=== PATIENT | female | born 1960 | race Caucasian/White ===

== ENCOUNTER 2018-04-28 16:13 | Emergency (ER) | payer SELFPAY ==
--- NOTE | 2018-04-28 17:32 | ER Document Report ---
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 Patient states she has had it for the last few weeks. She also complains of left foot pain. She does states she has been walking a lot. She states she was here in March and evaluated and was found to have a UTI. She states she never took the antibiotic. She also reports that she was diagnosed with kidney stones at that time. Currently, she denies any nausea or vomiting. She does not have any abdominal pain. And her symptoms appear radicular in nature. She denies any history of bleeding when asked about the hemophilia and says she is a "carrier" . She has not followed by a physician at this time. TRAVEL OUTSIDE OF THE [place] IN LAST 30 DAYS: No - Related Data Allergies/Adverse Reactions: Sulfa (Sulfonamide Antibiotics) Allergy (Verified 04/28/18 16:14) Past Medical History - Social History Chew tobacco use (# tins/day): No Frequency of alcohol use: None Drug Abuse: None Renal/ Medical History: Reports: Hx Kidney Stones. Denies: Hx Peritoneal Dialysis Physical Exam - Vital signs Vitals: Temp Pulse Resp BP Pulse Ox 97.4 F 91 20 166/115 H 98 04/28/18 16:28 04/28/18 16:28 04/28/18 16:28 04/28/18 16:28 04/28/18 16:28 Course - Vital Signs Vital signs: Temp Pulse Resp BP Pulse Ox 97.4 F 91 20 166/115 H 98 04/28/18 16:28 04/28/18 16:28 04/28/18 16:28 04/28/18 16:28 04/28/18 16:28
--- NOTE | 2018-04-28 18:21 | RADIOLOGY REPORT (SQ) ---
EXAM DESCRIPTION: FOOT LEFT COMPLETE COMPLETED DATE/TIME: 04/28/2018 6:07 pm REASON FOR STUDY: left foot pain COMPARISON: None. NUMBER OF VIEWS: Three views. TECHNIQUE: AP, lateral and oblique radiographic images acquired of the left foot. LIMITATIONS: None. FINDINGS: MINERALIZATION: Normal. BONES: No acute fracture or dislocation. No worrisome bone lesions. JOINTS: No effusions. SOFT TISSUES: No soft tissue swelling. No foreign body. OTHER: No other significant finding. IMPRESSION: NO RADIOGRAPHIC EVIDENCE OF ACUTE INJURY. TECHNICAL DOCUMENTATION: JOB ID: [id number] [place]-72 2010 [employer]- All Rights Reserved Reading location - IP/workstation name: [email or web address]
--- NOTE | 2018-04-28 18:23 | RADIOLOGY REPORT (SQ) ---
EXAM DESCRIPTION: T SPINE AP/LAT COMPLETED DATE/TIME: 04/28/2018 6:07 pm REASON FOR STUDY: pain COMPARISON: None. NUMBER OF VIEWS: Two views. TECHNIQUE: AP and lateral radiographic images acquired of the thoracic spine. LIMITATIONS: None. FINDINGS: MINERALIZATION: Normal. ALIGNMENT: Minimal scoliosis. VERTEBRAE: No fracture or bone lesion. Maintained height, normal segmentation. DISCS: No significant loss of height or significant narrowing. No large osteophytes. HARDWARE: None in the spine. MEDIASTINUM AND SOFT TISSUES: Normal heart size and aortic contour. No soft tissue abnormality. VISUALIZED LUNG MONACO: Clear. OTHER: No other significant finding. IMPRESSION: No acute findings. TECHNICAL DOCUMENTATION: JOB ID: [id number] [place]-72 2010 [employer]- All Rights Reserved Reading location - IP/workstation name: [email or web address]
--- NOTE | 2018-04-28 18:25 | RADIOLOGY REPORT (SQ) ---
EXAM DESCRIPTION: L SPINE WHOLE COMPLETED DATE/TIME: 04/28/2018 6:07 pm REASON FOR STUDY: low back pain COMPARISON: None. NUMBER OF VIEWS: Five views including obliques. TECHNIQUE: AP, lateral, oblique, and sacral radiographic images acquired of the lumbar spine. LIMITATIONS: None. FINDINGS: MINERALIZATION: Normal. SEGMENTATION: Normal. No transitional anatomy. ALIGNMENT: Grade 2 anterolisthesis of L5 on S1 due to bilateral L5 pars interarticularis defects. VERTEBRAE: Maintained height. No fracture or worrisome bone lesion. DISCS: Multilevel disc space narrowing with osteophytes. POSTERIOR ELEMENTS: Grade 2 anterolisthesis of L5 on S1 due to bilateral L5 pars interarticularis def ects.. Facet arthropathy is present. HARDWARE: None in the spine. PARASPINAL SOFT TISSUES: Probable left renal stones. PELVIS: Intact as visualized. No fractures or worrisome bone lesions. SI joints intact. OTHER: No other significant finding. IMPRESSION: Grade 2 anterolisthesis of L5 on S1 due to bilateral L5 pars interarticularis defects. No vertebral compression deformity. TECHNICAL DOCUMENTATION: JOB ID: [id number] [place]-[id number] 2010 [employer]- All Rights Reserved Reading location - IP/workstation name: [email or web address]
[2018-04-28 18:28] LABS: ABSOLUTE LYMPHOCYTES (AUTO) 1.4 10^3/uL (0.5-4.7); ABSOLUTE MONOCYTES (AUTO) 0.6 10^3/uL (0.1-1.4); ABSOLUTE NEUT (AUTO) 5.6 10^3/uL (1.7-8.2); BASOPHILS % (AUTO) 0.4 % (0-2); EOSINOPHILS % (AUTO) 0.4 % (0-6); HEMATOCRIT 37.4 % (36.0-47.0); HEMOGLOBIN 12.7 g/dL (12.0-15.5); LYMPHOCYTES % (AUTO) 17.7 % (13-45); MEAN CORPUSCULAR HEMOGLOBIN 30.5 pg (27.0-33.4); MEAN CORPUSCULAR HGB CONC 33.9 g/dL (32.0-36.0); MEAN CORPUSCULAR VOLUME 90 fl (80-97); MONOCYTES % (AUTO) 7.7 % (3-13); PLATELET COUNT 440 10^3/uL (150-450); RED BLOOD COUNT 4.16 10^6/uL (3.72-5.28); RED CELL DISTRIBUTION WIDTH 13.5 % (11.5-14.0); SEGMENTED NEUTROPHILS % (AUTO) 73.8 % (42-78); TOTAL CELLS COUNTED % (AUTO) 100 %; WHITE BLOOD COUNT 7.6 10^3/uL (4.0-10.5)
[2018-04-28 18:35] LABS: ALANINE AMINOTRANSFERASE 18 U/L (9-52); ALBUMIN 4.4 g/dL (3.5-5.0); ALKALINE PHOSPHATASE 75 U/L (38-126); ANION GAP 15 (5-19); ASPARTATE AMINO TRANSFERASE 19 U/L (14-36); BILIRUBIN,DIRECT 0.2 mg/dL (0.0-0.4); BILIRUBIN,TOTAL 0.3 mg/dL (0.2-1.3); BLOOD UREA NITROGEN 7 mg/dL (7-20); CALCIUM 9.8 mg/dL (8.4-10.2); CARBON DIOXIDE 25 mmol/L (22-30); CHLORIDE 104 mmol/L (98-107); GLUCOSE 115 mg/dL (75-110); POTASSIUM 3.7 mmol/L (3.6-5.0); SODIUM 143.9 mmol/L (137-145); TOTAL PROTEIN 8.1 g/dL (6.3-8.2)
[2018-04-28 19:29] LABS: APPEARANCE,URINE TURBID; BILIRUBIN,URINE NEGATIVE (NEGATIVE); GLUCOSE, URINE NEGATIVE (NEGATIVE); KETONES,URINE NEGATIVE (NEGATIVE); LEUKOCYTE ESTERASE,URINE LARGE (NEGATIVE); NITRITE,URINE NEGATIVE (NEGATIVE); PROTEIN,URINE 30 mg/dL (NEGATIVE); URINE SPECIFIC GRAVITY 1.004; UROBILINOGEN,URINE NEGATIVE mg/dL (<2.0)
[2018-04-28 19:30] LABS: COLOR,URINE LIGHT YELLOW
[2018-04-28] MEDS ORDERED: CIPROFLOXACIN HCL 750 MG TABLET PO ONE (20:08)
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
[2018-04-28 20:27] VITALS: BP 133/78
== END 2018-04-29 00:04 | disposition home or self-care (01) ==
LOC: MERGE 16:13 → ER 16:13
DX: N12 Tubulo-interstitial nephritis, not specified as acute or chronic (principal); R03.0 Elevated blood-pressure reading, without diagnosis of hypertension; R10.9 Unspecified abdominal pain; M54.9 Dorsalgia, unspecified; M79.672 Pain in left foot; F17.210 Nicotine dependence, cigarettes, uncomplicated; Z88.2 Allergy status to sulfonamides
CPT/HCPCS: 99284; 36415; 87086; 85025; 87088; 80053; 81001; 87186; 73630; 72110; 72070; J3490

== ENCOUNTER 2018-04-30 22:48 | Emergency (ER) | payer SELFPAY ==
[2018-04-30] MEDS ORDERED: HALOPERIDOL LACTATE INJ 5 MG/1 ML VIAL IM ONE (23:11)
--- NOTE | 2018-04-30 23:16 | ER Document Report ---
ED General - General Chief Complaint: Flank Pain Stated Complaint: LEFT FLANK PAIN Time Seen by Provider: 04/30/18 22:56 Notes: Patient is a 57-year-old female presents with her daughter. Daughter is employed here at the hospital. The patient's difficult to get a good history from. Should history from paramedics was that she says she has a kidney stone the left side she is having pain with the. Further history from the daughter reveals that she was actually seen here 24 hours ago and diagnosed with a kidney infection and sent home. Patient was sent home on Cipro. She took 1 dose since being discharged from the hospital being that she just recently got her medications. All information to patient's previous visit is actually under a different name. She was registered accidentally under her maiden name. The name that she is registered under for her last visit is Yumiko Fung. Account number for the visit is [id number]. When I asked the patient served strong she just continues to cry and scream out that she wants something to drink. It is very difficult to get any further information from the patient as she is emotionally distressed and not very consolable. I spoke with the daughter outside the room. The daughter says that the patient does have kidney infection however the bigger problem is that the patient has some psychiatric illness that is untreated. Daughter says that for many years the patient will have episodes where she goes through times of delusions. The daughter says in the last month or so it has gotten worse in the last week it has become even worse. Daughter says that the patient will sometimes seem perfectly normal then suddenly will go outside and start screaming at the mood and at the christopher yelling "I will kill everybody". She will then go back to having a somewhat normal affect. Daughter says that the patient will sometimes go on for several days of just being delusional and talking to and examining objects that are not there. Patient was actually seen here for similar symptoms in 2016 and then sent to [facility]. The daughter says when she was at [facility] she was placed on medications she did very well on this medication; however, the patient never followed up with psychiatry afterwards and therefore she stopped taking medications and her symptoms have continued to recur since being off these medications. The daughter cannot remember the name of the medications. As far as a kidney infection the patient does have a history of a large stone in the left kidney. It is difficult to get any history in regards to whether or not the patient had any treatment for this or not as the patient again is difficult to console or speak with. TRAVEL OUTSIDE OF THE [place] IN LAST 30 DAYS: No - Related Data Allergies/Adverse Reactions: No Known Allergies Allergy (Verified 08/23/12 20:01) Past Medical History - Social History Smoking Status: Unknown if Ever Smoked Frequency of alcohol use: None Drug Abuse: None Family History: Reviewed & Not Pertinent - Immunizations Hx Diphtheria, Pertussis, Tetanus Vaccination: - unknown Review of Systems - Review of Systems Notes: My Normal Review Basic REVIEW OF SYSTEMS: CONSTITUTIONAL : Denies fever, chills, or sweats. Denies recent illness. CARDIOVASCULAR: Denies chest pain. RESPIRATORY: Denies cough, cold, or chest congestion. Denies shortness of breath, difficulty breathing, or wheezing. GASTROINTESTINAL: left sided back pain. Some nausea. GENITOURINARY: Dysuria. Recent diagnosis of very tract infection MUSCULOSKELETAL: Denies neck or back pain or joint pain or swelling. SKIN: Denies rash or skin lesions. NEUROLOGICAL: Denies altered mental status or loss of consciousness. Denies headache. Denies weakness or paralysis or loss of use of either side. Denies problems with gait or speech. Denies sensory or motor loss. Psychiatric: History of delusions and yelling in eminent objects and recently being emotionally unstable. ALL OTHER SYSTEMS REVIEWED AND NEGATIVE. Physical Exam - Vital signs Vitals: Temp Pulse Resp BP Pulse Ox 98.2 F 76 18 115/60 98 05/01/18 02:15 05/01/18 02:15 05/01/18 02:15 05/01/18 02:15 05/01/18 02:15 - Notes Notes: General Appearance: She is emotionally hysterical. Is difficult to tell if she is actually having true pain if she is just emotional. She is constantly crying and asking for something to drink. Vitals: reviewed, See vital signs table. Head: no swelling or tenderness to the head Eyes: PERRL, EOMI, Conjuctiva clear Mouth: No decreasd moisture Lungs: No wheezing, No rales, No rhonci, No accessory muscle use, good air exchange bilaterally. Heart: Normal rate, Regular rythm, No murmur, no rub Abdomen: Normal BS, soft, No rigidity, No reproducible abdominal tenderness to palpation, No guarding, no rebound, no abdominal masses, no organomegaly Back: No reproducible pain palpation on the back. Extremities: strength 5/5 in all extremities, good pulses in all extremities, no swelling or tenderness in the extremities, no edema. Skin: warm, dry, appropriate color, no rash Neuro: speech clear, oriented x 2, odd affect, patient's constantly crying and difficult to respond to questions appropriately. Cranial nerves II through XII are intact. Patient is able to move all 4 extremities on her own without any difficulty.. 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 Lora, neurologist, to get his recommendations. He said being the patient is not septic or toxic and that she has normal vital signs she can follow palpation only with them in the office. He says ultimate treatment is just to give antibiotics and then to follow-up with them in the office and they may ultimately have to discuss possible nephrectomy. 05/01/18 04:30 After Haldol patient come down immediately and is been appropriate and actually answers questions for me without any difficulty now. She denies ever seeing a urologist about her kidney. She will not really comment on the delusions at this time. Patient's emotional state presentation and the story that the daughter told me are concerning the patient probably has some form of paranoid schizophrenia or delusions. I will consult mental health evaluate the patient this morning. I have spoken with the urologist who requests to place patient on antibiotics upon discharge and have her follow-up outpatient with them and they will discuss further treatment options in regards to her staghorn calculus in her kidney. I have placed orders in her discharge instruction for when and if she is discharged to follow-up with the urologist and for antibiotics for her to be discharged home. 05/01/18 05:25 05/02/18 06:29 Patient requesting medication for nasal congestion. I have ordered pseudophedrine - Vital Signs Vital signs: Temp Pulse Resp BP Pulse Ox 98.4 F 84 20 120/72 100 05/02/18 04:46 05/02/18 04:46 05/02/18 04:46 05/02/18 04:46 05/02/18 04:46 - Laboratory Result Diagrams: 05/01/18 00:00 05/01/18 00:00 Laboratory results interpreted by me: 04/30/18 05/01/18 05/01/18 23:02 00:00 00:00 RBC 3.57 L Hgb 10.9 L Hct 32.2 L Lymphocytes % 12.4 L Potassium 3.3 L Glucose 126 H Urine Protein 30 H Urine Blood MODERATE H Ur Leukocyte Esterase LARGE H Salicylates < 1.0 L Acetaminophen < 10 L - EKG Interpretation by Me Additional EKG results interpreted by me: 05/01/18 00:59 EKG is reviewed and interpreted by me. EKG shows normal sinus rhythm with rate of [address] segment elevation or depression. No ischemic T-wave inversions. MI interval, QRS duration, are within normal range. QTc interval is prolonged. Old EKG for comparison is from July 17, 2016. Discharge - Discharge Clinical Impression: Xanthogranulomatous pyelonephritis Condition: Stable Additional Instructions: You have a very large stone in your kidney that overtime has cause some damage to your kidney and has caused recurrent infections. I have spoken with the urologist, Dr. Lora, who recommends placing you on antibiotics and contacting him for a follow up appointment as you will likely eventually need surgery on your kidney. Please call Dr. Lora's office as soon as possible to make a close follow up appointment in regards to treatment of your kidney. Please stop taking the Ciprofloxacin and start taking the Keflex that I have prescribed you. Prescriptions: Cephalexin Monohydrate [Keflex 500 mg Capsule] 500 mg PO Q6H 7 Days capsule Referrals: MONTRELL LORA MD [NO LOCAL MD] - Follow up in 3-5 days
[2018-04-30 23:53] LABS: APPEARANCE,URINE CLOUDY; BILIRUBIN,URINE NEGATIVE (NEGATIVE); COLOR,URINE YELLOW; GLUCOSE, URINE NEGATIVE (NEGATIVE); KETONES,URINE NEGATIVE (NEGATIVE); LEUKOCYTE ESTERASE,URINE LARGE (NEGATIVE); NITRITE,URINE NEGATIVE (NEGATIVE); PROTEIN,URINE 30 mg/dL (NEGATIVE); URINE SPECIFIC GRAVITY 1.004; UROBILINOGEN,URINE NEGATIVE mg/dL (<2.0)
[2018-04-30 23:55] LABS: URINE AMPHETAMINES SCREEN NEGATIVE; URINE BARBITURATES SCREEN NEGATIVE; URINE BENZODIAZEPINES SCREEN NEGATIVE; URINE COCAINE SCREEN NEGATIVE; URINE MARIJUANA (THC) SCREEN NEGATIVE; URINE METHADONE SCREEN NEGATIVE; URINE PHENCYCLIDINE SCREEN NEGATIVE
[2018-05-01] MEDS ORDERED: CEFTRIAXONE INJ 1000 MG VIAL IV ONE (00:01)
[2018-05-01 00:18] LABS: ABSOLUTE EOSINOPHILS # (AUTO) 0.1 10^3/uL (0.0-0.6); ABSOLUTE LYMPHOCYTES (AUTO) 1.1 10^3/uL (0.5-4.7); ABSOLUTE MONOCYTES (AUTO) 0.7 10^3/uL (0.1-1.4); ABSOLUTE NEUT (AUTO) 6.6 10^3/uL (1.7-8.2); BASOPHILS % (AUTO) 0.3 % (0-2); EOSINOPHILS % (AUTO) 0.9 % (0-6); HEMATOCRIT 32.2 % (36.0-47.0); HEMOGLOBIN 10.9 g/dL (12.0-15.5); LYMPHOCYTES % (AUTO) 12.4 % (13-45); MEAN CORPUSCULAR HEMOGLOBIN 30.5 pg (27.0-33.4); MEAN CORPUSCULAR HGB CONC 33.9 g/dL (32.0-36.0); MEAN CORPUSCULAR VOLUME 90 fl (80-97); MONOCYTES % (AUTO) 8.4 % (3-13); PLATELET COUNT 326 10^3/uL (150-450); RED BLOOD COUNT 3.57 10^6/uL (3.72-5.28); RED CELL DISTRIBUTION WIDTH 13.3 % (11.5-14.0); TOTAL CELLS COUNTED % (AUTO) 100 %; WHITE BLOOD COUNT 8.5 10^3/uL (4.0-10.5)
[2018-05-01 00:34] LABS: ACETAMINOPHEN < 10 ug/mL (10-30); ALANINE AMINOTRANSFERASE 20 U/L (9-52); ALBUMIN 3.6 g/dL (3.5-5.0); ALCOHOL < 10 mg/dL (NONE DETECTED); ALKALINE PHOSPHATASE 73 U/L (38-126); ANION GAP 12 (5-19); ASPARTATE AMINO TRANSFERASE 20 U/L (14-36); BILIRUBIN,DIRECT 0.2 mg/dL (0.0-0.4); BILIRUBIN,TOTAL 0.5 mg/dL (0.2-1.3); BLOOD UREA NITROGEN 8 mg/dL (7-20); CALCIUM 8.7 mg/dL (8.4-10.2); CARBON DIOXIDE 23 mmol/L (22-30); CHLORIDE 107 mmol/L (98-107); GLUCOSE 126 mg/dL (75-110); POTASSIUM 3.3 mmol/L (3.6-5.0); SALICYLATE < 1.0 mg/dL (2.0-20.0); TOTAL PROTEIN 6.8 g/dL (6.3-8.2)
[2018-05-01] MEDS ORDERED: HYDROMORPHONE HCL INJ/PF 2 MG/ML AMPULE IV ONE (00:40)
--- NOTE | 2018-05-01 01:32 | RADIOLOGY REPORT (SQ) ---
EXAM DESCRIPTION: CT ABDOMEN WITHOUT IV CONTRAST COMPLETED DATE/TME: 05/01/2018 01:02 CLINICAL HISTORY: 57 years, Female, left flank pain COMPARISON: None. TECHNIQUE: Axial CT images of the abdomen and pelvis were obtained without contrast. DLP 378 Images stored on PACS. All CT scanners at this facility use dose modulation, iterative reconstruction, and/or weight based dosing when appropriate to reduce radiation dose to as low as reasonably achievable (ALARA). [facility]: Dose Right [facility]: CareDose [facility]: Dose Right [facility]: Teradose 4D [facility]: [employer] LIMITATIONS: None. FINDINGS: Lung bases are clear. The liver, gallbladder, pancreas, spleen, and adrenal glands are unremarkable. The right kidney appears unremarkable with no evidence of nephrolithiasis or hydronephrosis. The left kidney is enlarged with a staghorn calculus within the renal pelvis which measures 2.0 x 2.4 cm. There are multiple low-attenuation lesions masses within the left kidney. There is minimal left perinephric stranding. There are additional stones within the left kidney, largest of which measures 2.3 cm on the upper pole. There is no intraperitoneal free air or fluid. There is no lymphadenopathy. Abdominal aorta is unremarkable. The stomach and small bowel are unremarkable. The appendix is normal. The colon is unremarkable. The uterus, adnexa, and urinary bladder are unremarkable. 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 Additional stones within the left kidney measuring up to 2.3 cm in size. TECHNICAL DOCUMENTATION: Quality ID # [id number]: Final reports with documentation of one or more dose reduction techniques (e.g., Automated exposure control, adjustment of the mA and/or kV according to patient size, use of iterative reconstruction technique) 2010 [employer]- All Rights Reserved
[2018-05-01] MEDS ORDERED: KETOROLAC TROMETHAMINE INJ/PF 30 MG/1 ML SDV IV ONE (03:58)
--- NOTE | 2018-05-01 09:22 | EKG REPORT ---
SEVERITY:- BORDERLINE ECG - SINUS RHYTHM BORDERLINE PROLONGED QT INTERVAL : Confirmed by: Polly Garzon 01-May-2018 09:22:23
--- NOTE | 2018-05-01 09:40 | ER Document Report ---
Doctor's Note Notes: 05/01/18 09:40 As the rounding physician for our psychiatric patients, I have reviewed the chart, vitals, lab work. Patient has been examined and noted to be having delusions still. I am awaiting mental health in put.
[2018-05-01] MEDS ORDERED: BENZTROPINE MESYLATE 1 MG TABLET PO ONE (09:43)
[2018-05-01] MEDS: CEFTRIAXONE INJ 1000 MG VIAL IV SCH (10:08)
[2018-05-01] MEDS: CEPHALEXIN 500 MG CAPSULE PO SCH ×3 (10:09→18:05)
[2018-05-01] MEDS: CHLORPROMAZINE HCL 50 MG TABLET PO SCH ×2 (10:10→14:13)
[2018-05-01] MEDS: BENZTROPINE MESYLATE 1 MG TABLET PO SCH (10:10)
[2018-05-02] MEDS: CHLORPROMAZINE HCL 50 MG TABLET PO SCH ×2 (00:08→06:43)
[2018-05-02] MEDS ORDERED: PSEUDOEPHEDRINE HCL 30 MG TABLET PO ONE (06:28)
[2018-05-02] MEDS: CEFTRIAXONE INJ 1000 MG VIAL IV SCH (09:18)
[2018-05-02] MEDS: BENZTROPINE MESYLATE 1 MG TABLET PO SCH (09:19)
[2018-05-02] MEDS: CEPHALEXIN 500 MG CAPSULE PO SCH ×3 (09:19→17:28)
[2018-05-02] MEDS: FLUPHENAZINE HCL 2.5 MG TABLET PO SCH ×2 (10:31→17:28)
--- NOTE | 2018-05-02 12:58 | PSYCHOLOGICAL NOTE ---
Psych Note - Psych Note Psych Note: Reason for Consult: Delusions Patient presented to [facility] ED with concerns of kidney infection and delusions. Attending physician noted that he spoke with the patient's daughter. She disclosed concerns with the patient have delusions. She reports the patient has had many similar episodes in the past. She reports that patient has significantly gotten worse over the last month. Patient disclosed she is currently at [facility] for kidney stone and because her neighbors harassing her. When asked for clarification she stated that her neighbors harassing her because of a DSS case they recently went through. She states her neighbors son ended up killing himself after the case was closed and since then they have not left her alone. She reports that she wanted the clinician to know about this because "people need to be aware of the family." She continues state that police should also be notified. When asked if the patient has any mental health history she denies stating "I do not have any mental health." When asked if the patient felt there was anything else that was important to clinician need to know she stated that clinician need to know the DSS case number and identified that as "[id number]." Patient is alert and orientated to person, place, time. Mood is euthymic with congruent affect. Patient denies suicidal and homicidal ideations. Delusions of persecution are noted. Patient's thoughts are organized and linear however are very focused on her delusions. Eye contact was well-maintained. Conversational speech was within normal rate, tone and prosody. Intellectual abilities appear to be within the average range. Attention and concentration are fair. Insight, judgment, impulse control are poor. Medication recommendations per [facility]'s contracted psychiatrist Dr. Reyna PATEL are as follows 1. Thorazine 50 mg every 8 hours 2. 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 Patient verbalizes delusions of persecution. Medication recommendations have been provided. Patient will be re-evaluated. Dr. Weiss was consulted on the care and management of this patient; attending physician is in agreement with recommendations and disposition.
--- NOTE | 2018-05-02 13:03 | PSYCHOLOGICAL NOTE ---
Psych Note - Psych Note Psych Note: Reason for Consult: Delusions Patient presented to [facility] with concerns of kidney infection and delusions. Clinician conducted check-in with patient Patient reports that she is "so-so" and that nothing is really change her left side still hurts and she is having issues still with her neighbors. Patient states that her neighbors and now involve the ; "it is fraud." She continues to disclose "DSS ran a fraud venue" proving her claims. 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 Medication recommendations per [facility]'s contracted psychiatrist Dr. Reyna PATEL are as follows 1. Please discontinue Thorazine and Cogentin 2. Please start Prolixin 5 mg twice daily 3. 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 Patient verbalizes delusions of persecution. Medication recommendation changes have been provided. Patient will be re-evaluated. Dr. Weiss was consulted on the care and management of this patient; attending physician is in agreement with recommendations and disposition.
[2018-05-02] MEDS: FLUPHENAZINE DECANOATE INJ 125 MG/5 ML VIAL IM SCH (13:57)
--- NOTE | 2018-05-02 21:44 | ER Document Report ---
Doctor's Note Notes: 05/02/18 21:42 Medical rounds: Earlier this date, the chart was reviewed and patient was interviewed briefly. Vital signs are normal. Laboratory values are remarkable for apparent UTI, which is being treated after consultation with urologist. The patient is alert, oriented, and cooperative. Other than some mild flank pain, she verbalizes no somatic complaints. She is medically stable pending reevaluation and disposition by psych.
[2018-05-03] MEDS: FLUPHENAZINE HCL 2.5 MG TABLET PO SCH (09:20)
[2018-05-03] MEDS: CEPHALEXIN 500 MG CAPSULE PO SCH ×2 (09:20→13:29)
[2018-05-03] MEDS: FLUPHENAZINE DECANOATE INJ 125 MG/5 ML VIAL IM SCH (09:20)
[2018-05-03] MEDS: CEFTRIAXONE INJ 1000 MG VIAL IV SCH (09:28)
--- NOTE | 2018-05-03 11:18 | ER Document Report ---
Doctor's Note Notes: 05/03/18 11:16 Rounds: Chart reviewed and patient interviewed. Patient is being evaluated for bizarre behavior. Vital signs were all essentially normal. Lab studies show possible UTI. CT scan shows patient has a large left staghorn calculus. Also has some stones in the right kidney. Consult with Dr. Lora, urology, who recommended antibiotics and follow-up by them as needed. Patient is receiving Rocephin IV today and started on Keflex. Vital signs are all are essentially normal. Other lab studies normal. Patient appears to be medically stable for transfer or discharge. Vitor Arzate MD
[2018-05-03 14:49] VITALS: BP 165/91
--- NOTE | 2018-05-06 10:18 | PSYCHOLOGICAL NOTE ---
Psych Note - Psych Note Psych Note: Reason for Consult: Delusions Patient presented to [facility] ED with concerns of kidney infection and delusions. Clinician conducted check-in with patient Patient states that she is doing well today and that she was hoping to be able to call her daughter because it is her daughter's birthday today. She also discussed following up with a urologist to determine the best course of action for the kidney stone. Patient denies current suicidal homicidal ideation. Patient denies seeing or hearing anything that confuses her scares her Medication recommendations per [facility]'s contracted psychiatrist Dr. Reyna PATEL are as follows 1. Please discontinue Thorazine and Cogentin 2. Please start Prolixin 5 mg twice daily 3. 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 Patient has some continued focus on persecutory delusions however they have improved and the patient is able to focus on other topics (ie her daughter's birthday). The patient does suffer from chronic UTI's from a very large kidney stone. These UTIs appear to onset her psychosis and once controlled with medications she returns to baseline. The patient's delusions have reportedly been on going for a significant time frame and this appears to be the patient's baseline. These delusions do not harm herself or anyone else. Patient denies suicidal and homicidal ideation. She discussed openly about her symptoms with the clinician and her thoughts on following up with a urologist for her kidney stone (she believes she will ask for surgery to decrease the chance of continues UTIs). Patient is recommended to continue mental health services and was provided a local resource list. Dr. Weiss was consulted on the care and management of this patient; attending physician is in agreement with recommendations and disposition.
== END 2018-05-03 14:59 | disposition home or self-care (01) ==
LOC: ER 22:48
DX: N11.8 Other chronic tubulo-interstitial nephritis (principal); N20.0 Calculus of kidney; F29 Unspecified psychosis not due to a substance or known physiological condition; F22 Delusional disorders; R11.0 Nausea; R09.81 Nasal congestion
CPT/HCPCS: 93005; 99285; 96372; 96375; 96365; 96366; 36415; 87040; 87086; 80307 ×4; 85025; 80053; 81001; 93010; J2680; J1630; J0696; J3490

== ENCOUNTER 2020-05-25 21:13 | Emergency (ER) | payer MEDICAID ==
--- NOTE | 2020-05-25 21:39 | ER Document Report ---
ED Medical Screen (RME) - General Chief Complaint: Psych Problem Stated Complaint: LEFT LEG PAIN/POSSIBLE POISONING Time Seen by Provider: 05/25/20 21:37 Mode of Arrival: Ambulatory Information source: Patient Notes: 59-year-old female presented to ED for complaint of leg swelling hematomas bruising. She states that her daughter yesterday and she has been very distraught. I did get a letter from the family that the patient has been screaming and has an appointment with [facility] yesterday and they wanted her to be seen and IVC. Patient's son-in-law is with her. Patient is requesting blood work and drug testing because she thinks someone is poisoning her. She states she is not a danger to herself or anybody else but she does want to be tested to find out what is going on with her. She has agreed to talk to her doctor about what is going on. I have greeted and performed a rapid initial assessment of this patient. A comprehensive ED assessment and evaluation of the patient, analysis of test results and completion of medical decision making process will be conducted by an additional ED providers. TRAVEL OUTSIDE OF THE [place] IN LAST 30 DAYS: No - Related Data Allergies/Adverse Reactions: Sulfa (Sulfonamide Antibiotics) Allergy (Verified 04/28/18 16:14) Past Medical History Renal/ Medical History: Reports: Hx Kidney Stones. Denies: Hx Peritoneal Dialysis Psychiatric Medical History: Reports: Hx Schizophrenia - Immunizations Hx Diphtheria, Pertussis, Tetanus Vaccination: - unknown Physical Exam - Vital signs Vitals: Temp Pulse Resp BP Pulse Ox 97.6 F 86 16 141/86 H 99 05/25/20 21:26 05/25/20 21:26 05/25/20 21:26 05/25/20 21:05/25/20 21:26 Course - Vital Signs Vital signs: Temp Pulse Resp BP Pulse Ox 97.6 F 86 16 141/86 H 99 05/25/20 21:26 05/25/20 21:26 05/25/20 21:26 05/25/20 21:26 05/25/20 21:26
--- NOTE | 2020-05-25 22:53 | RADIOLOGY REPORT (SQ) ---
EXAM DESCRIPTION: US EXTREMITY VEINS BILATERAL COMPLETED DATE/TME: 05/25/2020 21:42 CLINICAL HISTORY: 59 years, Female, pain swelling COMPARISON: None. TECHNIQUE: Axial 2-D grayscale images of both lower extremities were acquired. Doppler was utilized. LIMITATIONS: None. FINDINGS: Bilateral common femoral, femoral, popliteal, posterior tibial, peroneal, greater saphenous, and small saphenous veins demonstrate normal compressibility and phasicity. However, there was slow flow identified within the left popliteal vein. Superficial soft tissues show no suspicious abnormality. IMPRESSION: No evidence of deep venous thrombosis about either lower extremity. copyright 2010 [employer]- All Rights Reserved
[2020-05-25 23:04] LABS: ABSOLUTE EOSINOPHILS # (AUTO) 0.1 10^3/uL (0.0-0.6); ABSOLUTE LYMPHOCYTES (AUTO) 1.5 10^3/uL (0.5-4.7); ABSOLUTE MONOCYTES (AUTO) 0.6 10^3/uL (0.1-1.4); ABSOLUTE NEUT (AUTO) 4.3 10^3/uL (1.7-8.2); BASOPHILS % (AUTO) 0.6 % (0-2); EOSINOPHILS % (AUTO) 1.7 % (0-6); HEMATOCRIT 35.6 % (36.0-47.0); HEMOGLOBIN 12.5 g/dL (12.0-15.5); LYMPHOCYTES % (AUTO) 22.5 % (13-45); MEAN CORPUSCULAR HEMOGLOBIN 31.8 pg (27.0-33.4); MEAN CORPUSCULAR VOLUME 91 fl (80-97); MONOCYTES % (AUTO) 9.7 % (3-13); PLATELET COUNT 529 10^3/uL (150-450); RED BLOOD COUNT 3.93 10^6/uL (3.72-5.28); RED CELL DISTRIBUTION WIDTH 13.2 % (11.5-14.0); SEGMENTED NEUTROPHILS % (AUTO) 65.5 % (42-78); TOTAL CELLS COUNTED % (AUTO) 100 %; WHITE BLOOD COUNT 6.5 10^3/uL (4.0-10.5)
[2020-05-25 23:10] LABS: APPEARANCE,URINE TURBID; BILIRUBIN,URINE NEGATIVE (NEGATIVE); COLOR,URINE DARK YELLOW; GLUCOSE, URINE NEGATIVE (NEGATIVE); KETONES,URINE NEGATIVE (NEGATIVE); LEUKOCYTE ESTERASE,URINE LARGE (NEGATIVE); NITRITE,URINE POSITIVE (NEGATIVE); PROTEIN,URINE 100 mg/dL (NEGATIVE); URINE SPECIFIC GRAVITY 1.004; UROBILINOGEN,URINE NEGATIVE mg/dL (<2.0)
[2020-05-25 23:20] LABS: ALBUMIN 4.2 g/dL (3.5-5.0); ALKALINE PHOSPHATASE 87 U/L (38-126); ANION GAP 9 (5-19); ASPARTATE AMINO TRANSFERASE 31 U/L (14-36); BILIRUBIN,DIRECT 0.3 mg/dL (0.0-0.4); BILIRUBIN,TOTAL 0.4 mg/dL (0.2-1.3); BLOOD UREA NITROGEN 8 mg/dL (7-20); CALCIUM 9.4 mg/dL (8.4-10.2); CARBON DIOXIDE 29 mmol/L (22-30); CHLORIDE 100 mmol/L (98-107); GLUCOSE 109 mg/dL (75-110); POTASSIUM 3.7 mmol/L (3.6-5.0); TOTAL PROTEIN 7.5 g/dL (6.3-8.2)
[2020-05-25 23:21] LABS: URINE AMPHETAMINES SCREEN NEGATIVE; URINE BARBITURATES SCREEN NEGATIVE; URINE BENZODIAZEPINES SCREEN NEGATIVE; URINE COCAINE SCREEN NEGATIVE; URINE MARIJUANA (THC) SCREEN NEGATIVE; URINE METHADONE SCREEN NEGATIVE; URINE PHENCYCLIDINE SCREEN NEGATIVE
[2020-05-25 23:24] LABS: ACETAMINOPHEN < 10 ug/mL (10-30); ALCOHOL < 10 mg/dL (NONE DETECTED); SALICYLATE < 1.0 mg/dL (2.0-20.0)
--- NOTE | 2020-05-26 06:23 | ER Document Report ---
ED General - General Chief Complaint: Psych Problem Stated Complaint: LEFT LEG PAIN/POSSIBLE POISONING Time Seen by Provider: 05/25/20 21:37 Primary Care Provider: [facility] [Outside] - Follow up as needed Mode of Arrival: Ambulatory Notes: Patient presents with leg swelling bilateral for the last week. Not painful. She is worried because there is "spots"" hematomas" in her legs. She initially has no psychiatric complaints at all. She was seen by the RENAL NURSE had bilateral leg ultrasounds and a full set of labs which are normal. She denies history of renal failure, recent chest pain shortness of breath, unilateral leg swelling history of DVT or PE, and smoking. TRAVEL OUTSIDE OF THE [place] IN LAST 30 DAYS: No - Related Data Allergies/Adverse Reactions: Sulfa (Sulfonamide Antibiotics) Allergy (Verified 04/28/18 16:14) Past Medical History - General Information source: Patient - Social History Smoking Status: Never Smoker Frequency of alcohol use: None Family History: Reviewed & Not Pertinent Patient has homicidal ideation: No Renal/ Medical History: Reports: Hx Kidney Stones. Denies: Hx Peritoneal Dialysis Psychiatric Medical History: Reports: Hx Schizophrenia - Immunizations Hx Diphtheria, Pertussis, Tetanus Vaccination: - unknown Review of Systems - Review of Systems Notes: REVIEW OF SYSTEMS GEN: Denies fever, chills, weight loss ENT: Denies sore throat, nasal discharge, ear pain EYES: Denies blurry vision, eye pain, discharge CV: Denies chest pain, palpitations, edema RESP: Denies cough, shortness of breath, wheezing GI: Denies abdominal pain, nausea, vomiting, diarrhea MSK: Neck swelling SKIN: Denies rash, skin lesions LYMPH: Denies swollen glands/lymph nodes NEURO: Denies headache, focal weakness or numbness, dizziness PSYCH: Denies depression, suicidal or homicidal ideation PHYSICAL EXAMINATION General: No acute distress, well-nourished Head: Atraumatic, normocephalic ENT: Mouth normal, oropharynx moist, no exudates or tonsillar enlargement Eyes: Conjunctiva normal, pupils equal, lids normal Neck: No JVD, supple, no guarding CVS: Normal rate, regular rhythm, no murmurs Resp: No resp distress, equal and normal breath sounds bilaterally GI: Nondistended, soft, no tenderness to palpation, no rebound or guarding Ext: Leg edema bilaterally, nonpitting 1+ edema t Back: No CVA or midline TTP Skin: No rash, warm Lymphatic: No lymphadeopathy noted Neuro: Awake, alert. Face symmetric. GCS 15. Physical Exam - Vital signs Vitals: Temp Pulse Resp BP Pulse Ox 97.6 F 86 16 141/86 H 99 05/25/20 21:26 05/25/20 21:26 05/25/20 21:26 05/25/20 21:26 05/25/20 21:26 Course - Re-evaluation Re-evalutation: 05/26/20 07:07 Leg swelling, without a history of renal kidney or heart failure, with no signs of pulmonary involvement. Doubt cellulitis. Ultrasounds of both legs by nurse practitioner are negative for DVT, labs are normal as well. Initially patient was discharged but subsequently her son called stating that she is had paranoia for 6 months. Previous history of psychosis noncompliant with treatment. Having some delusions as well. He wants her IVC, but the family has made no attempts. They have called [facility] and were told to bring her to the emergency room. After long discussion with the son I agree to offer her mental health treatment and IVC or if she refuses. Update 7:12 AM. I had a long discussion with the patient. She is denying any of the symptoms. Though she may be lying, I cannot with a good conscience hold her against her will based on my extended interview with her including after speaking with her son. I did offer her mental health assessment and she has refused. She was given the number for [facility]. I have discussed with the patient there likely diagnosis, aftercare plan, follow-up plans and my usual and customary return precautions. They verbalized understanding of this. 05/26/20 07:12 - Vital Signs Vital signs: Temp Pulse Resp BP Pulse Ox 98.2 F 80 18 132/89 H 100 05/26/20 04:45 05/26/20 04:45 05/26/20 04:45 05/26/20 04:45 05/26/20 04:45 - Laboratory Result Diagrams: 05/25/20 22:40 05/25/20 22:40 Laboratory results interpreted by me: 05/25/20 05/25/20 05/25/20 22:40 22:40 22:40 Hct 35.6 L Plt Count 529 H Est GFR (MDRD) Non-Af 52 L Urine Protein 100 H Urine Blood MODERATE H Urine Nitrite POSITIVE H Ur Leukocyte Esterase LARGE H Salicylates < 1.0 L Acetaminophen < 10 L Discharge - Discharge Clinical Impression: Localized swelling of both lower legs Superficial bruising of lower leg Qualifiers: Encounter type: initial encounter Laterality: right Qualified Code(s): S80.11XA - Contusion of right lower leg, initial encounter UTI (urinary tract infection) Qualifiers: Urinary tract infection type: acute cystitis Hematuria presence: without hematuria Qualified Code(s): N30.00 - Acute cystitis without hematuria Condition: Good Disposition: HOME, SELF-CARE Instructions: Dependent Edema ([facility]), Urinary Tract Infection ([facility]) Prescriptions: Nitrofurantoin Monohyd/M-Cryst [Macrobid 100 mg Capsule] 100 mg PO BID #10 cap Referrals: [facility] [Outside] - Follow up as needed
[2020-05-26 08:09] VITALS: BP 134/86
--- NOTE | 2020-05-26 17:05 | EKG REPORT ---
SEVERITY:- OTHERWISE NORMAL ECG - SINUS RHYTHM WITH BASELINE ARTIFACT : Confirmed by: Sarah Robbins MD 26-May-2020 17:05:38
== END 2020-05-26 08:07 | disposition home or self-care (01) ==
LOC: ER 21:13
DX: S80.11XA Contusion of right lower leg, initial encounter (principal); X58.XXXA Exposure to other specified factors, initial encounter; N30.00 Acute cystitis without hematuria; M79.89 Other specified soft tissue disorders; R60.0 Localized edema; Z88.2 Allergy status to sulfonamides
CPT/HCPCS: 36415; 80053; 80307; 81001; 85025; 93005; 93010; 93970; 99285

== ENCOUNTER 2020-10-22 09:43 | Emergency (ER) | payer SELFPAY ==
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
[2020-10-22 10:57] LABS: ABSOLUTE LYMPHOCYTES (AUTO) 1.1 10^3/uL (0.5-4.7); ABSOLUTE MONOCYTES (AUTO) 0.6 10^3/uL (0.1-1.4); ABSOLUTE NEUT (AUTO) 5.3 10^3/uL (1.7-8.2); BASOPHILS % (AUTO) 0.4 % (0-2); EOSINOPHILS % (AUTO) 0.6 % (0-6); HEMOGLOBIN 11.7 g/dL (12.0-15.5); MEAN CORPUSCULAR HEMOGLOBIN 29.7 pg (27.0-33.4); MEAN CORPUSCULAR HGB CONC 34.3 g/dL (32.0-36.0); MEAN CORPUSCULAR VOLUME 87 fl (80-97); MONOCYTES % (AUTO) 7.9 % (3-13); PLATELET COUNT 474 10^3/uL (150-450); RED BLOOD COUNT 3.92 10^6/uL (3.72-5.28); RED CELL DISTRIBUTION WIDTH 13.2 % (11.5-14.0); SEGMENTED NEUTROPHILS % (AUTO) 75.1 % (42-78); TOTAL CELLS COUNTED % (AUTO) 100 %; WHITE BLOOD COUNT 7.1 10^3/uL (4.0-10.5)
--- NOTE | 2020-10-22 11:11 | PSYCHOLOGICAL NOTE ---
Psych Note - Psych Note Date seen by psych provider: 10/22/20 Time seen by psych provider: 11:06 Psych Note: Collateral Information: At 1106 spoke to Vera from [facility]. She reported patient has diagnoses of Delusional Disorder, Generalized Anxiety Disorder, Unspecified Psychosis, and Mental Disorder Not Otherwise Specified. She stated it looks like patient has not been inpatient in awhile. She noted mobile crisis involvement in May and June 2020. She identified it looks like patient does not have an outpatient provider as there is no information listed.
[2020-10-22 11:17] LABS: ALKALINE PHOSPHATASE 80 U/L (38-126); ANION GAP 7 (5-19); APPEARANCE,URINE TURBID; ASPARTATE AMINO TRANSFERASE 20 U/L (14-36); BILIRUBIN,DIRECT 0.1 mg/dL (0.0-0.4); BILIRUBIN,TOTAL 0.4 mg/dL (0.2-1.3); BILIRUBIN,URINE NEGATIVE (NEGATIVE); BLOOD UREA NITROGEN 16 mg/dL (7-20); CALCIUM 9.4 mg/dL (8.4-10.2); CARBON DIOXIDE 26 mmol/L (22-30); CHLORIDE 104 mmol/L (98-107); COLOR,URINE YELLOW; GLUCOSE 116 mg/dL (75-110); GLUCOSE, URINE NEGATIVE (NEGATIVE); KETONES,URINE NEGATIVE (NEGATIVE); LEUKOCYTE ESTERASE,URINE LARGE (NEGATIVE); NITRITE,URINE NEGATIVE (NEGATIVE); POTASSIUM 4.2 mmol/L (3.6-5.0); PROTEIN,URINE 100 mg/dL (NEGATIVE); TOTAL PROTEIN 7.7 g/dL (6.3-8.2); URINE SPECIFIC GRAVITY 1.014; UROBILINOGEN,URINE NEGATIVE mg/dL (<2.0)
[2020-10-22 11:19] LABS: ACETAMINOPHEN < 10 ug/mL (10-30); ALCOHOL < 10 mg/dL (NONE DETECTED); SALICYLATE < 1.0 mg/dL (2.0-20.0)
[2020-10-22] MEDS ORDERED: CEFTRIAXONE 1 GM/D5W RTU 1 GM/50 ML RTUPB IV ONE (11:44)
[2020-10-22 12:03] LABS: URINE AMPHETAMINES SCREEN NEGATIVE; URINE BARBITURATES SCREEN NEGATIVE; URINE BENZODIAZEPINES SCREEN NEGATIVE; URINE COCAINE SCREEN NEGATIVE; URINE MARIJUANA (THC) SCREEN NEGATIVE; URINE METHADONE SCREEN NEGATIVE; URINE PHENCYCLIDINE SCREEN NEGATIVE
--- NOTE | 2020-10-22 12:12 | EKG REPORT ---
SEVERITY:- NORMAL ECG - SINUS RHYTHM : Confirmed by: Virgil Laguerre MD 22-Oct-2020 12:11:50
[2020-10-22] MEDS ORDERED: DOCUSATE SODIUM 100 MG CAPSULE PO ONE (15:17)
[2020-10-22 16:00] VITALS: BP 150/89
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
== END 2020-10-22 15:50 | disposition home or self-care (01) ==
LOC: ER 09:43
DX: N39.0 Urinary tract infection, site not specified (principal); F22 Delusional disorders; R10.9 Unspecified abdominal pain; J44.9 Chronic obstructive pulmonary disease, unspecified; Z87.442 Personal history of urinary calculi
CPT/HCPCS: 93005; 99284; 96365; 36415; 87086; 80307 ×4; 85025; 87088; 80053; 81001; 87186; 93010; J0696